=== PATIENT | female | born 1975 | race Caucasian/White ===

== ENCOUNTER 2025-01-07 09:01 | Emergency (ER) | payer BC, SELFPAY ==
[2025-01-07 09:03] VITALS: BP 131/86
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
[2025-01-07 09:26] VITALS: BP 117/81; BMI 24.5
[2025-01-07] MEDS: TYLENOL 1000 MG PO (09:32)
[2025-01-07] MEDS: REGLAN 10 MG PO (09:36)
== END 2025-01-07 11:18 | disposition home or self-care (01) ==
LOC: EMR 09:01
PROVIDERS: EMERGENCY PHYSICIAN Student in an Organized Health Care Education/Training Program; FAMILY PHYSICIAN Nurse Practitioner
DX: S06.0XAA Concussion with loss of consciousness status unknown, initial encounter (principal); W50.0XXA Accidental hit or strike by another person, initial encounter
CPT/HCPCS: 99284; 70450